=== PATIENT | male | born 1985 | race African-American/Black ===

== ENCOUNTER 2017-09-28 08:56 | Emergency (ER) | payer OTHER, MEDICAID ==
[~2017-09-28] VITALS: Ht 177.8 cm; Wt 97.5 kg
[~2017-09-28 08:56] MED LIST: AMOXICILLIN875 MG PO; ULTRAM 50MG TAB50 MG PO
[2017-09-28 09:12] VITALS: BP 119/74
== END 2017-09-28 09:50 | disposition home or self-care (01) ==
LOC: M.ERS 08:56
DX: A64 Unspecified sexually transmitted disease (principal)